=== PATIENT | female | born 1990 | race Caucasian/White ===

== ENCOUNTER 2020-11-27 14:49 | Day surgery (SDC) | payer BC ==
[2020-11-27] MEDS ORDERED: Depo-Medrol 40 MG/ML IM ONE (14:50)
[2020-11-27] MEDS ORDERED: LIDOCAINE HCL 2% 100 MG/5 ML IJ ONE (14:50)
[2020-11-27] MEDS ORDERED: Lactated Ringers 1,000 ML IV ONE (16:06)
[2020-11-27] MEDS ORDERED: DIPRIVAN 200 MG/20 ML IV ONE (16:36)
--- NOTE | 2020-11-27 17:34 | XRAY ---
Indication: Bilateral L4-S1 MBB. Intraoperative fluoroscopy provided for 7 seconds. Single digital spot image submitted for interpretation demonstrate posterior needle tips projecting over the expected left and right L4-S1 nerve roots. Correlate with intraoperative findings/report.
--- NOTE | 2020-11-27 17:37 | XRAY ---
7 seconds of fluoroscopy was used in surgery for a bilateral L4-L5, L5-S1 MBB.
== END 2020-11-27 17:00 | disposition home or self-care (01) ==
LOC: SDC-PAIN 14:49
PROVIDERS: ATTEND Psychiatry & Neurology Pain Medicine
DX: M47.816 Spondylosis without myelopathy or radiculopathy, lumbar region (principal); F41.9 Anxiety disorder, unspecified; F32.9 Major depressive disorder, single episode, unspecified; I10 Essential (primary) hypertension; A49.02 Methicillin resistant Staphylococcus aureus infection, unspecified site; Z79.899 Other long term (current) drug therapy
CPT/HCPCS: 64493; 64494; 72020; 77002; 84703; J1030; J2704

== ENCOUNTER 2021-01-29 10:15 | Day surgery (SDC) | payer BC ==
[2021-01-29] MEDS ORDERED: Marcaine Mpf 0.5% Vial 30 Ml IJ ONE (10:16)
[2021-01-29] MEDS ORDERED: Depo-Medrol 40 MG/ML IM ONE (10:16)
[2021-01-29] MEDS ORDERED: DIPRIVAN 200 MG/20 ML IV ONE (11:31)
[2021-01-29] MEDS ORDERED: Lactated Ringers 1,000 ML IV ONE (13:48)
--- NOTE | 2021-01-29 17:00 | XRAY ---
13 seconds of fluoroscopy was used in surgery for a bilateral L4-S1 MBB.
--- NOTE | 2021-01-31 09:17 | XRAY ---
Indication: Bilateral L4-S1 MBB. Intraoperative fluoroscopy was provided for 13 seconds. A single digital spot image submitted for interpretation demonstrates posterior spinal needle tips projected over the expected course of the left and right L4-S1 nerve roots. Correlate with intraoperative findings/report.
== END 2021-01-29 12:03 | disposition home or self-care (01) ==
LOC: SDC-PAIN 10:15
PROVIDERS: ATTEND Psychiatry & Neurology Pain Medicine
DX: M47.816 Spondylosis without myelopathy or radiculopathy, lumbar region (principal); Z79.899 Other long term (current) drug therapy
CPT/HCPCS: 64493; 64494; 72020; 77002; 84703; J1030; J2704

== ENCOUNTER 2021-03-12 13:56 | Day surgery (SDC) | payer BC ==
[2021-03-12] MEDS ORDERED: Xylocaine 1% Vial 30 ML PF IJ ONE (13:57)
[2021-03-12] MEDS ORDERED: BUPIVACAINE 0.5% VIAL IJ ONE (13:57)
[2021-03-12] MEDS ORDERED: Depo-Medrol 40 MG/ML IM ONE (13:57)
[2021-03-12] MEDS ORDERED: DIPRIVAN 200 MG/20 ML IV ONE ×2 (15:47→15:52)
[2021-03-12] MEDS ORDERED: Lactated Ringers 1,000 ML IV ONE (17:30)
--- NOTE | 2021-03-12 18:24 | XRAY ---
Indication: Right L4-S1 RFA. Intraoperative fluoroscopy provided for 37 seconds. 4 digital spot image submitted for interpretation demonstrates posterior needle tips projecting over the expected right L4-S1 nerve roots. Correlate with intraoperative findings/report.
--- NOTE | 2021-03-12 19:01 | XRAY ---
37 seconds of fluoroscopy was used in surgery for a right L4-S1 RFA.
== END 2021-03-12 16:16 | disposition home or self-care (01) ==
LOC: SDC-PAIN 13:56
PROVIDERS: ATTEND Psychiatry & Neurology Pain Medicine
DX: M47.816 Spondylosis without myelopathy or radiculopathy, lumbar region (principal); Z79.899 Other long term (current) drug therapy
CPT/HCPCS: 64635; 64636; 72100; 77002; 84703; J1030; J2001; J2704

== ENCOUNTER 2021-03-19 10:27 | Day surgery (SDC) | payer BC ==
[2021-03-19] MEDS ORDERED: Depo-Medrol 40 MG/ML IM ONE (10:28)
[2021-03-19] MEDS ORDERED: Xylocaine 1% Vial 30 ML PF IJ ONE (10:28)
[2021-03-19] MEDS ORDERED: DIPRIVAN 200 MG/20 ML IV ONE (11:57)
--- NOTE | 2021-03-19 14:59 | XRAY ---
Indication: Left L4-S1 RFA. Intraoperative fluoroscopy provided for 35 seconds. 2 digital spot images submitted for interpretation demonstrates posterior needle tips projecting over the expected left L4-S1 nerve roots. Correlate with intraoperative findings/report.
[2021-03-19] MEDS ORDERED: Lactated Ringers 1,000 ML IV ONE (15:21)
--- NOTE | 2021-03-19 16:54 | XRAY ---
35 seconds fluoroscopy time in surgery for left L4-S1 RFA.
== END 2021-03-19 12:25 | disposition home or self-care (01) ==
LOC: SDC-PAIN 10:27
PROVIDERS: ATTEND Psychiatry & Neurology Pain Medicine
DX: M47.816 Spondylosis without myelopathy or radiculopathy, lumbar region (principal); Z79.899 Other long term (current) drug therapy
CPT/HCPCS: 64635; 64636; 72100; 77002; 84703; J1030; J2001; J2704

== ENCOUNTER 2021-04-25 09:33 | Day surgery (SDC) | payer BC ==
[2021-04-25] MEDS ORDERED: Depo-Medrol 40 MG/ML IM ONE (09:34)
[2021-04-25] MEDS ORDERED: Sodium Chloride 0.9% 10 ML FLUSH Syringe IJ ONE (09:34)
[2021-04-25] MEDS ORDERED: DIPRIVAN 200 MG/20 ML IV ONE (10:31)
[2021-04-25] MEDS ORDERED: Lactated Ringers 1,000 ML IV ONE (10:48)
--- NOTE | 2021-04-25 11:38 | XRAY ---
Indication: Right L4-S1 transforaminal AG. Intraoperative fluoroscopy provided for 35 seconds. 3 digital spot image submitted for interpretation demonstrates posterior needle tips projecting over the expected right L4 and L5 nerve roots. Small amount of contrast injected for needle tip placement. Correlate with intraoperative findings/report.
--- NOTE | 2021-04-25 12:23 | XRAY ---
35 seconds fluoroscopy time in surgery for right L4-S1 transforaminal AG.
== END 2021-04-25 10:38 | disposition home or self-care (01) ==
LOC: SDC-PAIN 09:33
PROVIDERS: ATTEND Psychiatry & Neurology Pain Medicine
DX: M54.16 Radiculopathy, lumbar region (principal); I10 Essential (primary) hypertension; F41.9 Anxiety disorder, unspecified; F32.9 Major depressive disorder, single episode, unspecified; Z79.899 Other long term (current) drug therapy
CPT/HCPCS: 64483; 64484; 72100; 77003; 84703; J1030; J2704; Q9966